=== PATIENT | female | born 1975 | race Caucasian/White ===

== ENCOUNTER 2017-12-02 13:15 | Emergency (ER) | payer OTHER ==
[~2017-12-02] VITALS: Ht 162.6 cm; Wt 79.8 kg
[2017-12-02] MEDS ORDERED: DIOVAN320 MG (14:02)
[2017-12-02] MEDS ORDERED: NORVASC5 MG (14:02)
== END 2017-12-02 17:27 | disposition home or self-care (01) ==
LOC: ER 13:15
DX: M62.830 Muscle spasm of back (principal)